=== PATIENT | female | born 1985 | race Caucasian/White ===

== ENCOUNTER 2017-01-10 16:13 | Emergency (ER) | payer SELFPAY ==
[~2017-01-10] VITALS: Ht 160 cm; Wt 74.7 kg
[2017-01-10] MEDS ORDERED: PREDNISONE20 MG PO (17:53)
[2017-01-10] MEDS ORDERED: TESSALON PERLE100 MG PO (17:53)
[2017-01-10] MEDS ORDERED: VENTOLIN HFA18 GM IH (17:53)
[2017-01-10] MEDS ORDERED: ZITHROMAX500 MG PO (17:53)
[2017-01-10 18:19] VITALS: BP 105/8
== END 2017-01-10 18:21 | disposition home or self-care (01) ==
LOC: EME 16:13
DX: J40 Bronchitis, not specified as acute or chronic (principal); F17.200 Nicotine dependence, unspecified, uncomplicated; Z71.6 Tobacco abuse counseling
CPT/HCPCS: 94640; 99281; 99284; J2930; J7512